=== PATIENT | male | born 1975 | race Caucasian/White ===

== ENCOUNTER 2017-07-06 11:41 | Emergency (ER) | payer SELFPAY ==
[2017-07-06 11:41] VITALS: BMI 20.5
--- NOTE | 2017-07-06 12:06 | ED PDOC ---
HPI: Psych/Substance Abuse Time Seen by Provider: 07/06/17 12:02 Chief Complaint (Nursing): Psychiatric Evaluation Chief Complaint (Provider): etoh History Per: Patient Additional Complaint(s): 41-year-old male with history of alcohol abuse presents to emergency department acutely intoxicated via ambulance. Patient is complaining of neck pain upon arrival. He denies fall or trauma, states he has history of chronic neck pain/ He admits to drinking today. Past Medical History Reviewed: Historical Data, Nursing Documentation, Vital Signs Vital Signs: Last Vital Signs Temp 98.1 F 07/06/17 11:53 Pulse 97 H 07/06/17 11:53 Resp 18 07/06/17 11:53 BP 128/103 H 07/06/17 11:53 Pulse Ox 97 07/06/17 11:53 - Medical History PMH: Chronic Pain (neck pain) - Surgical History Other surgeries: c spine surgery - Family History Family History: States: No Known Family Hx - Living Arrangements Living Arrangements: Other (non-domiciled) - Social History Current smoker - smoking cessation education provided: No Alcohol: > 2 Drinks/Day Drugs: Denies - Home Medications Home Medications: Ambulatory Orders Medication Instructions Recorded Folic Acid 04/15/17 Multivitamin [Multi-Vitamin Daily] 04/15/17 Pantoprazole [Protonix EC Tab] 04/15/17 Thiamine 04/15/17 - Allergies Allergies/Adverse Reactions: Allergies Allergy/AdvReac Type Severity Reaction Status Date / Time Unobtainable Allergy Verified 07/06/17 11:54 Review of Systems ROS Statement: Except As Marked, All Systems Reviewed And Found Negative Musculoskeletal: Positive for: Neck Pain (chronic, denies fall) Psych: Positive for: Other (etoh) Physical Exam - Reviewed Nursing Documentation Reviewed: Yes Vital Signs Reviewed: Yes - Physical Exam Appears: Positive for: Well, Non-toxic, No Acute Distress Head Exam: Positive for: ATRAUMATIC, NORMAL INSPECTION Skin: Positive for: Normal Color Eye Exam: Positive for: Normal appearance ENT: Positive for: Other (etoh on breath) Neck: Positive for: Pain On Movement Of Neck Cardiovascular/Chest: Positive for: Regular Rate, Rhythm Respiratory: Positive for: Normal Breath Sounds. Negative for: Respiratory Distress Back: Positive for: Normal Inspection. Negative for: L CVA Tenderness, R CVA Tenderness, Vertebral Tenderness Extremity: Positive for: Normal ROM. Negative for: Pedal Edema Neurologic/Psych: Positive for: Other (alert, answers some questions) - Laboratory Results Result Diagrams: 07/06/17 12:15 07/06/17 12:15 - ECG Interpretation Of ECG: NSR 91 bpm, no acute finding, reviewed by PA and ED attending O2 Sat by Pulse Oximetry: 97 Pulse Ox Interpretation: Normal - Other Rad CXR X-Ray: Interpreted by Me, Viewed By Me X-Ray Interpretation: no acute finding Cervical Spine x-ray X-Ray: Interpreted by Me, Viewed By Me X-Ray Interpretation: no fx, no dis, hardware noted with gross alignment Medical Decision Making Medical Decision Makin41 year old intoxicated male complaining of neck pain Plan: CBC CMP BAL UDS UA C spine x-ray CXR EKG PO motrin for pain 2:00 PM: BAL is 403. 3:00 pm: patient is asleep, arousable, vital signs stable, will continue to monitor Disposition - Clinical Impression Clinical Impression: Alcohol intoxication - Patient ED Disposition Is Patient to be Admitted: Transfer of Care - Disposition Disposition: Transfer of Care Disposition Time: 15:06 Condition: FAIR Forms: [employer] (Armenian) Patient Signed Over To: Codie Iraheta Handoff Comments: Signed out to Dr. iraheta pending sobriety and final disposition Results - Lab Results Lab Results: 07/06/17 07/06/17 12:15 12:15 WBC 4.0 L RBC 4.55 Hgb 13.1 Hct 39.6 MCV 87.1 MCH 28.8 MCHC 33.1 RDW 20.3 H Plt Count 91 L MPV 8.9 Neut % (Auto) 42.1 L Lymph % (Auto) 42.6 H [place] % (Auto) 9.1 Eos % (Auto) 3.4 Baso % (Auto) 2.8 H Neut # 1.7 L Lymph # 1.7 [place] # 0.4 Eos # 0.1 Baso # 0.1 Sodium 145 Potassium 4.1 Chloride 101 Carbon Dioxide 27 Anion Gap 21 H BUN 8 L Creatinine 0.5 L Est GFR ( Amer) > 60 Est GFR (Non-Af Amer) > 60 Random Glucose 86 Calcium 8.7 Total Bilirubin 0.6 AST 381 H ALT 118 H Alkaline Phosphatase 120 Total Protein 8.2 Albumin 4.9 Globulin 3.3 Albumin/Globulin Ratio 1.5 Alcohol, Quantitative 403 H*
[2017-07-06 12:30] LABS: BASO # 0.1 K/uL (0.0-0.2); BASO % 2.8 % (0.0-2.0); EOS # 0.1 K/uL (0.0-0.7); EOS % 3.4 % (0.0-4.0); HEMATOCRIT 39.6 % (35.0-51.0); LYMPH # 1.7 K/uL (1.0-4.3); LYMPH % 42.6 % (20.0-40.0); MEAN CELL VOLUME 87.1 fl (80.0-94.0); MEAN CORPUSCULAR HEMOGLOBIN 28.8 pg (27.0-31.0); MEAN CORPUSCULAR HGB CONC 33.1 g/dL (33.0-37.0); MEAN PLATELET VOLUME 8.9 fl (7.2-11.7); MONO # 0.4 K/uL (0.0-0.8); MONO % 9.1 % (0.0-10.0); NEUT # 1.7 K/uL (1.8-7.0); NEUT % 42.1 % (50.0-75.0); NRBC % 0.3 % (0.0-0.0); RED CELL DISTRIBUTION WIDTH 20.3 % (11.5-14.5)
[2017-07-06 12:43] LABS: ALB/GLOB RATIO 1.5 (1.0-2.1); ALKALINE PHOSPHATASE 120 U/L (38-126); ALT/SGPT 118 U/L (21-72); AST/SGOT 381 U/L (17-59); BILIRUBIN,TOTAL 0.6 mg/dl (0.2-1.3); BLOOD UREA NITROGEN 8 mg/dl (9-20); CALCIUM 8.7 mg/dL (8.4-10.2); CARBON DIOXIDE 27 mmol/L (22-30); CHLORIDE 101 mmol/L (98-107); GFR AFRICAN-AMERICAN > 60; GLUCOSE,RANDOM 86 mg/dL (75-110); POTASSIUM 4.1 MMOL/L (3.6-5.0); SODIUM 145 mmol/l (132-148); TOTAL PROTEIN 8.2 G/DL (6.3-8.2)
[2017-07-06 12:55] LABS: ALCOHOL SERUM 403 mg/dl (0-10)
--- NOTE | 2017-07-06 14:04 | RAD ---
HISTORY: clearance COMPARISON: No prior. TECHNIQUE: Chest PA and lateral FINDINGS: LUNGS: No active pulmonary disease. PLEURA: No significant pleural effusion identified. No pneumothorax apparent. CARDIOVASCULAR: Normal. OSSEOUS STRUCTURES: No significant abnormalities. VISUALIZED UPPER ABDOMEN: Normal. OTHER FINDINGS: None. IMPRESSION: No active disease.
--- NOTE | 2017-07-06 14:04 | RAD ---
PROCEDURE: Cervical Spine Radiographs. HISTORY: Pain. COMPARISON: None. FINDINGS: BONES: Status post anterior fixation C4 through C6 with plate and screw device. Central cage noted through the vertebral bodies of C5 and C6. Normal vertebral alignment maintained. Hardware grossly intact. DISC SPACES: Narrowing of C3-4 disc space with large anterior osteophytes consistent with degenerative disc disease. SOFT TISSUES: Normal. No prevertebral soft tissue swelling. OTHER FINDINGS: None. IMPRESSION: Anterior fixation C4 through C6. Degenerative disc disease C3-4. No evidence of fracture/dislocation
--- NOTE | 2017-07-06 16:58 | ED PDOC ---
- Laboratory Results Result Diagrams: 07/06/17 12:15 07/06/17 12:15 - ECG O2 Sat by Pulse Oximetry: 97 Disposition - Clinical Impression Clinical Impression: Alcohol intoxication - Disposition Condition: FAIR Forms: [employer] (Nigerian) Addendum Addendum: 07/06/17 15:00 Pt signed out by Jose Carlos Willis pending intoxication.
--- NOTE | 2017-07-06 19:31 | ED PDOC ---
- Laboratory Results Result Diagrams: 07/06/17 12:15 07/06/17 12:15 - ECG O2 Sat by Pulse Oximetry: 97 Medical Decision Making Medical Decision Makin Patient endorsed to me by Dr. Iraheta. Pending sobriety and CT head 1402 Cervical Spine X-Ray FINDINGS: BONES: Status post anterior fixation C4 through C6 with plate and screw device. Central cage noted through the vertebral bodies of C5 and C6. Normal vertebral alignment maintained. Hardware grossly intact. DISC SPACES: Narrowing of C3-4 disc space with large anterior osteophytes consistent with degenerative disc disease. SOFT TISSUES: Normal. No prevertebral soft tissue swelling. OTHER FINDINGS: None. IMPRESSION: Anterior fixation C4 through C6. Degenerative disc disease C3-4. No evidence of fracture/dislocation 1403 CXR FINDINGS: LUNGS: No active pulmonary disease. PLEURA: No significant pleural effusion identified. No pneumothorax apparent. CARDIOVASCULAR: Normal. OSSEOUS STRUCTURES: No significant abnormalities. VISUALIZED UPPER ABDOMEN: Normal. OTHER FINDINGS: None. IMPRESSION: No active disease. 20:[address] FINDINGS: Brain: There is mild prominence of sulci, gyri and ventricles. There is no midline shift. There are no intra-axial or extra axial mass lesions or areas of hemorrhage. Mckeon-white differentiation is maintained. Ventricles: See above. Bony structures: Cranial vault is intact. Soft tissues: unremarkable Sinuses: There is mucoperiosteal thickening in the sinuses. There are no air-fluid levels. Ears and mastoids: Middle ears and mastoids unremarkable. There is debris in the left external auditory canal Orbits: Orbital contents are unremarkable. IMPRESSION: No acute intracranial abnormality 20:[address] FINDINGS: Vertebrae: There is maintenance of the cervical lordosis. There is no prevertebral soft tissue swelling. C1, C2 and C3 are intact. C7-T2 vertebral bodies are intact. Posterior elements are intact at all levels.There is narrowing at the C3-C4 disc space with degenerative change. There is anterior fusion C4/C5/C6. There is a cage extending from the C4-C5 to the C5-C6 disc space. There is disc space fusion. There is fusion of the C4/C5 and C5/C6 facet joints. Remaining facet joints are patent. Spinous processes align in the expected fashion. Discs/spinal canal/neural foramina: See above. Soft tissues: See above. Thyroid: Thyroid is mildly heterogeneous. Lung apices: Lung apices are clear IMPRESSION: Spinal fusion C4/C5/C6, no acute fracture; degenerative change 23:09 Patient is sober and stable for discharge home. Patient is advised to follow up with PMD in the next 2 days. pt aware of imaging results Scribe Attestation: Documented by Eddi Farfan and Erna Gonzalez, acting as a scribe for Estuardo Martinez MD. Provider Scribe Attestation: All medical record entries made by the Scribe were at my direction and personally dictated by me. I have reviewed the chart and agree that the record accurately reflects my personal performance of the history, physical exam, medical decision making, and the department course for this patient. I have also personally directed, reviewed, and agree with the discharge instructions and disposition. Disposition - Clinical Impression Clinical Impression: Alcohol intoxication - POA Present On Arrival: None - Disposition Referrals: [facility] [Outside] [facility] [Outside] Disposition: Routine/Home Disposition Time: 22:50 Condition: FAIR Additional Instructions: follow up with your primary doctor in 1-2 days return to the ED with any worsening or concerning symptoms Instructions: Alcohol Intoxication (ED) Forms: [employer] (Qatari)
--- NOTE | 2017-07-06 20:08 | CT ---
EXAM: CT Head Without Intravenous Contrast EXAM DATE/TIME: 07/06/2017 5:16 PM CLINICAL HISTORY: 41 years old, male; Signs and symptoms; Other: Crisis eval; Additional info: Vertigo. Sent phy. Doc. TECHNIQUE: Axial computed tomography images of the head/brain without intravenous contrast. All CT scans at this facility use one or more dose reduction techniques, viz.: automated exposure control; ma/kV adjustment per patient size (including targeted exams where dose is matched to indication; i.e. head); or iterative reconstruction technique. Coronal and sagittal reformatted images were created and reviewed. COMPARISON: There are no prior studies for comparison. FINDINGS: Brain: There is mild prominence of sulci, gyri and ventricles. There is no midline shift. There are no intra-axial or extra axial mass lesions or areas of hemorrhage. Mckeon-white differentiation is maintained. Ventricles: See above. Bony structures: Cranial vault is intact. Soft tissues: unremarkable Sinuses: There is mucoperiosteal thickening in the sinuses. There are no air-fluid levels. Ears and mastoids: Middle ears and mastoids unremarkable. There is debris in the left external auditory canal Orbits: Orbital contents are unremarkable. IMPRESSION: No acute intracranial abnormality
--- NOTE | 2017-07-06 20:14 | CT ---
EXAM: CT Cervical Spine Without Intravenous Contrast EXAM DATE/TIME: 07/06/2017 5:16 PM CLINICAL HISTORY: 41 years old, male; Pain; Neck pain; Prior surgery; Surgery date: 6+ months; Additional info: L sided neck pain TECHNIQUE: Axial computed tomography images of the cervical spine without intravenous contrast. All CT scans at this facility use one or more dose reduction techniques, viz.: automated exposure control; ma/kV adjustment per patient size (including targeted exams where dose is matched to indication; i.e. head); or iterative reconstruction technique. Coronal and sagittal reformatted images were created and reviewed. COMPARISON: There are no prior studies for comparison. FINDINGS: Vertebrae: There is maintenance of the cervical lordosis. There is no prevertebral soft tissue swelling. C1, C2 and C3 are intact. C7-T2 vertebral bodies are intact. Posterior elements are intact at all levels.There is narrowing at the C3-C4 disc space with degenerative change. There is anterior fusion C4/C5/C6. There is a cage extending from the C4-C5 to the C5-C6 disc space. There is disc space fusion. There is fusion of the C4/C5 and C5/C6 facet joints. Remaining facet joints are patent. Spinous processes align in the expected fashion. Discs/spinal canal/neural foramina: See above. Soft tissues: See above. Thyroid: Thyroid is mildly heterogeneous. Lung apices: Lung apices are clear IMPRESSION: Spinal fusion C4/C5/C6, no acute fracture; degenerative change
[2017-07-06 22:29] VITALS: RESP 16
[2017-07-07 03:51] VITALS: BP 118/75; PULSE 80; TEMP 98.2
[2017-07-07 05:37] VITALS: O2SAT 97
--- NOTE | 2017-07-07 08:25 | CARD ---
APPROVED REPORT EKG Measurement Heart [id number] <Conclusion> Normal sinus rhythm Normal ECG
== END 2017-07-07 03:30 | disposition home or self-care (01) ==
LOC: H.ER 11:41
DX: F10.129 Alcohol abuse with intoxication, unspecified (principal); M54.2 Cervicalgia; G89.29 Other chronic pain
CPT/HCPCS: 70450; 71020; 72040; 72125; 80053; 85025; 93005; 99283; G0480